=== PATIENT | male | born 1970 | race Caucasian/White ===

== ENCOUNTER 2016-06-28 22:20 | Emergency (ER) | payer SELFPAY ==
[~2016-06-28] VITALS: Ht 167.6 cm; Wt 70.9 kg
[2016-06-28 22:46] VITALS: BP 130/102
[2016-06-28] MEDS ORDERED: ATOR20TA86 PO (22:47)
[2016-06-28] MEDS ORDERED: LISI-660 PO (22:47)
[2016-06-28] MEDS ORDERED: METF500T4 PO (22:47)
[2016-06-28 22:52] LABS: GLUCOSE COMMENT 1 Doctor Notified; GLUCOSE,POINT OF CARE 246 MG/DL (70-110)
== END 2016-06-29 01:06 | disposition left against medical advice (07) ==
LOC: EMS 22:28
DX: M25.511 Pain in right shoulder (principal); M25.512 Pain in left shoulder; E11.9 Type 2 diabetes mellitus without complications; E78.00 Pure hypercholesterolemia, unspecified; I10 Essential (primary) hypertension
CPT/HCPCS: 82962

== ENCOUNTER 2016-06-29 20:49 | Emergency (ER) | payer SELFPAY ==
[~2016-06-29] VITALS: Ht 167.6 cm; Wt 70.9 kg
[~2016-06-29 20:49] MED LIST: ATOR20TA86 PO; LISI-660 PO; METF500T4 PO
[2016-06-29 21:17] LABS: GLUCOSE COMMENT 1 Doctor Notified; GLUCOSE,POINT OF CARE 379 MG/DL (70-110)
[2016-06-29 21:29] VITALS: BP 129/74
[2016-06-29] MEDS ORDERED: ACETAMINOPHEN/CODEINE 300-30 MG TABLET PO ONE (21:45)
== END 2016-06-29 22:01 | disposition home or self-care (01) ==
LOC: EMS 20:51
DX: S33.5XXA Sprain of ligaments of lumbar spine, initial encounter (principal); M25.511 Pain in right shoulder; E11.9 Type 2 diabetes mellitus without complications; I10 Essential (primary) hypertension; E78.00 Pure hypercholesterolemia, unspecified; V49.40XA Driver injured in collision with unspecified motor vehicles in traffic accident, initial encounter; Y93.89 Activity, other specified; Y92.89 Other specified places as the place of occurrence of the external cause; Y99.8 Other external cause status
CPT/HCPCS: 72040; 82962; 99284